=== PATIENT | male | born 1985 | race American Indian/Alaskan Native ===

== ENCOUNTER 2021-07-31 10:39 | Emergency (ER) | payer OTHER ==
--- NOTE | 2021-07-31 11:48 | Emergency Department Report ---
ED Lower Extremity HPI - General Chief Complaint: Extremity Injury, Lower Stated Complaint: RGHT ANKLE INJURY Time Seen by Provider: 07/31/21 11:18 Source: patient Mode of arrival: Ambulatory Limitations: No Limitations - History of Present Illness Initial Comments: Patient is a 36-year-old male presents emergency room complaints of a right ankle injury that occurred last night. 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 He states he did not fall completely to the ground. He states since then he has been experiencing right ankle pain and swelling. He states when he was a kid he did have a fracture of this ankle. He denies any numbness or weakness. He is ambulatory but does have discomfort with ambulation. Allergy to penicillin. PMHx HTN and asthma - Related Data Previous Rx's Medication Instructions Recorded Last Taken Type Benzonatate [Tessalon Perle] 100 mg PO TID PRN #30 capsule 07/02/18 Unknown Rx Naproxen 500 mg PO BID PRN #14 tab 07/31/21 Unknown Rx amLODIPine 5 mg PO DAILY #30 tab 07/31/21 Unknown Rx Allergies Allergy/AdvReac Type Severity Reaction Status Date / Time Penicillins Allergy Rash Verified 07/02/18 13:54 ED Review of Systems ROS: Stated complaint: RGHT ANKLE INJURY Other details as noted in HPI Comment: All other systems reviewed and negative ED Past Medical Hx - Past Medical History Previous Medical History?: Yes Hx Hypertension: Yes (no meds, noncompliance) Hx Asthma: Yes - Surgical History Past Surgical History?: Yes Additional Surgical History: endocardititis - Social History Smoking Status: Current Every Day Smoker Substance Use Type: Alcohol - Medications Home Medications: Home Medications Medication Instructions Recorded Confirmed Last Taken Type Benzonatate [Tessalon Perle] 100 mg PO TID PRN #30 capsule 07/02/18 Unknown Rx Naproxen 500 mg PO BID PRN #14 tab 07/31/21 Unknown Rx amLODIPine 5 mg PO DAILY #30 tab 07/31/21 Unknown Rx ED Physical Exam - General Limitations: No Limitations General appearance: alert, in no apparent distress - Head Head exam: Present: atraumatic, normocephalic - Eye Eye exam: Present: normal appearance - ENT ENT exam: Present: mucous membranes moist - Extremities Exam Extremities exam: Present: other (right medial ankle ttp and mild edema, FROM of the RLE, no obvious deformity, neurovascularly intact) - Neurological Exam Neurological exam: Present: alert, oriented X3 - Psychiatric Psychiatric exam: Present: normal affect, normal mood - Skin Skin exam: Present: warm, dry, intact ED Course Vital Signs 07/31/21 07/31/21 11:16 12:14 Temperature 98.6 F 98.4 F Pulse Rate 93 H 88 Respiratory 20 14 Rate Blood Pressure 157/119 Blood Pressure 165/106 [Right] O2 Sat by Pulse 100 99 Oximetry ED Lower Extremity MDM - Lab Data Vital Signs 07/31/21 07/31/21 11:16 12:14 Temperature 98.6 F 98.4 F Pulse Rate 93 H 88 Respiratory 20 14 Rate Blood Pressure 157/119 Blood Pressure 165/106 [Right] O2 Sat by Pulse 100 99 Oximetry - Radiology Data Radiology results: report reviewed Ordering Physician: CHICHO CANTOR Date of Service: 07/31/21 Procedure(s): XR ankle 3+V RT Accession Number(s): [id number] cc: CHICHO CANTOR Fluoro Time In Minutes: RIGHT ANKLE 3 VIEWS RIGHT FOOT 3 VIEWS INDICATION: right medial foot and ankle pain. COMPARISON: No relevant prior imaging study available. FINDINGS: Right ankle: No fracture or dislocation is seen. No significant degenerative changes. No significant soft tissue swelling. Right foot: No fracture or dislocation. No significant soft tissue swelling. IMPRESSION: 1. No acute findings. Signer Name: Martin Gramajo MD Signed: 07/31/2021 11:52 AM Workstation Name: [id number] Transcribed By: Dictated By: Martin Gramajo MD Electronically Authenticated By: Martin Gramajo MD Signed Date/Time: 07/31/21 1152 DD/ 1151 TD/TT: - Medical Decision Making Patient is a 36-year-old male presents emergency room complaints of a right ankle injury that occurred last night. 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 He states he did not fall completely to the ground. He states since then he has been experiencing right ankle pain and swelling. He states when he was a kid he did have a fracture of this ankle. He denies any numbness or weakness. He is ambulatory but does have discomfort with ambulation. Allergy to penicillin. PMHx HTN and asthma. vitals with elevated blood pressure, otherwise stable. Patient states that he has chronic hypertension, he is not on medication management, will start patient on low-dose amlodipine, advised low-sodium diet, incorporating daily exercise, and keeping a blood pressure log and taking this at the primary care physician. On exam right medial ankle ttp and mild edema, FROM of the RLE, no obvious deformity, neurovascularly intact. X-ray right ankle and foot 1. No acute findings. Symptoms and examination appear likely consistent with ankle sprain. Patient placed in ankle stirrup splint and given crutches by tech and remained neurovascularly intact. Discussed all findings with patient. Advised patient Please take medication as prescribed. May use ice 15 minutes at a time, rest, elevation of the leg. Follow-up with a orthopedic doctor. Return to emergency room for any new or worsening symptoms. Critical care attestation.: If time is entered above; I have spent that time in minutes in the direct care of this critically ill patient, excluding procedure time. ED Disposition Clinical Impression: Uncontrolled hypertension Right ankle sprain Qualifiers: Encounter type: initial encounter Involved ligament of ankle: unspecified ligament Qualified Code(s): S93.401A - Sprain of unspecified ligament of right ankle, initial encounter Disposition: HOME / SELF CARE / HOMELESS Is pt being admited?: No Does the pt Need Aspirin: No Condition: Stable Instructions: Ankle Sprain, Elastic Bandage and RICE Therapy, Hypertension (ED) Additional Instructions: Please take medication as prescribed. May use ice 15 minutes at a time, rest, elevation of the leg. Follow-up with a orthopedic doctor. Return to emergency room for any new or worsening symptoms. Prescriptions: amLODIPine 5 mg PO DAILY #30 tab Naproxen 500 mg PO BID PRN #14 tab PRN Reason: pain Referrals: PRIMARY CAREMD [Primary Care Provider] - 3-5 Days HERNESTO CINTRON MD [Staff Physician] - 3-5 Days Forms: Work/School Release Form(ED) Time of Disposition: 11:57 Print Language: MOHAWK
--- NOTE | 2021-07-31 11:56 | XRay Report ---
RIGHT ANKLE 3 VIEWS RIGHT FOOT 3 VIEWS INDICATION: right medial foot and ankle pain. COMPARISON: No relevant prior imaging study available. FINDINGS: Right ankle: No fracture or dislocation is seen. No significant degenerative changes. No significant soft tissue swelling. Right foot: No fracture or dislocation. No significant soft tissue swelling. IMPRESSION: 1. No acute findings. Signer Name: Martin Gramajo MD Signed: 07/31/2021 11:52 AM Workstation Name: [id number]
[2021-07-31 12:16] VITALS: BP 157/119
== END 2021-07-31 12:19 | disposition home or self-care (01) ==
LOC: ED 10:39
DX: S93.401A Sprain of unspecified ligament of right ankle, initial encounter (principal); I10 Essential (primary) hypertension; J45.909 Unspecified asthma, uncomplicated; Z79.899 Other long term (current) drug therapy; Z98.890 Other specified postprocedural states; Z88.0 Allergy status to penicillin; F17.200 Nicotine dependence, unspecified, uncomplicated; X58.XXXA Exposure to other specified factors, initial encounter; Y93.89 Activity, other specified; Y92.89 Other specified places as the place of occurrence of the external cause; Y99.8 Other external cause status
CPT/HCPCS: 99283

== ENCOUNTER 2021-12-17 10:30 | Emergency (ER) | payer OTHER ==
[2021-12-17 10:43] VITALS: BP 147/97
[2021-12-17 14:34] LABS: Bilirubin,Urine NEG (Negative); Blood,Urine MOD (Negative); Color,Urine Yellow (Yellow)
[2021-12-17 14:41] LABS: Amorphous Crystals,Urine 2+; Mucus,Urine 1+ /HPF
== END 2021-12-19 07:24 | disposition left against medical advice (07) ==
LOC: ED 10:30
DX: R31.9 Hematuria, unspecified (principal); Z53.21 Procedure and treatment not carried out due to patient leaving prior to being seen by health care provider
CPT/HCPCS: 81001

== ENCOUNTER 2021-12-20 08:53 | Emergency (ER) | payer OTHER ==
[2021-12-20 09:56] LABS: Mucus,Urine FEW /HPF; RBC,Urine < 1.0 /HPF (0.0-6.0); WBC,Urine < 1.0 /HPF (0.0-6.0)
[2021-12-20 10:33] LABS: Bilirubin,Urine Negative (Negative); Blood,Urine Negative (Negative); Color,Urine Yellow (Yellow); Protein,Urine <15 mg/dL mg/dL (Negative); Urobilinogen,Urine < 2.0 mg/dL (<2.0)
--- NOTE | 2021-12-20 10:42 | Emergency Department Report ---
ED Dysuria HPI - HPI Chief Complaint: Urogenital-Male Stated Complaint: BLOOD IN URINE Time Seen by Provider: 12/20/21 09:34 Duration: 2 Days Location of Discomfort: Other Severity: None Symptoms: Dysuria: No, Frequency: No, Suprapubic Pain: No, Flank Pain: No, Fever: No, Hematuria: Yes, Abdominal Pain: No, Previous UTI's: Yes Other History: Patient is a 36-year-old male that comes to the emergency room reporting blood in his urine. He denies any pain. No nausea vomiting. No fever or chills. No back pain or abdominal pain. Patient states that the last time that he had this he had a UTI. He denies penile discharge. Denies testicular pain. ED Review of Systems ROS: Stated complaint: BLOOD IN URINE Other details as noted in HPI Comment: All other systems reviewed and negative ED Past Medical Hx - Past Medical History Previous Medical History?: Yes Hx Hypertension: Yes Hx Asthma: Yes Hx Dementia: Yes - Surgical History Past Surgical History?: Yes Additional Surgical History: endocardititis - Social History Smoking Status: Never Smoker Substance Use Type: None - Medications Home Medications: Home Medications Medication Instructions Recorded Confirmed Last Taken Type Benzonatate [Tessalon Perle] 100 mg PO TID PRN #30 capsule 07/02/18 Unknown Rx Naproxen 500 mg PO BID PRN #14 tab 07/31/21 Unknown Rx amLODIPine 5 mg PO DAILY #30 tab 07/31/21 Unknown Rx Dysuria Exam - Exam General: Vital signs noted. No distress. Alert and acting appropriately. Exam: Yes Moist Mucous Membranes, No CVA Tenderness, No Abdominal Tenderness, No Rigidity or Guarding Labs: Lab Results 12/20/21 Range/Units Unknown Urine Color Yellow (Yellow) Urine Turbidity Clear (Clear) Urine pH 5.0 (5.0-7.0) Ur Specific [place] 1.030 (1.003-1.030) Urine Protein <15 mg/dl (Negative) mg/dL Urine Glucose (UA) Negative (Negative) mg/dL Urine Ketones Negative (Negative) mg/dL Urine Blood Negative (Negative) Urine Nitrite Negative (Negative) Ur Reducing Substances Not Reportable Urine Bilirubin Negative (Negative) Urine Ictotest Not Reportable Urine Urobilinogen < 2.0 (<2.0) mg/dL Ur Leukocyte Esterase Negative (Negative) Urine WBC (Auto) < 1.0 (0.0-6.0) /HPF Urine RBC (Auto) < 1.0 (0.0-6.0) /HPF U Epithel Cells (Auto) < 1.0 (0-13.0) /HPF Urine Mucus Few /HPF ED Course Vital Signs 12/20/21 09:16 Temperature 98.9 F Pulse Rate 89 Respiratory 16 Rate Blood Pressure 95/80 O2 Sat by Pulse 100 Oximetry ED Medical Decision Making - Medical Decision Making Labs 12/20/21 Unknown Urine Color Yellow Urine Turbidity Clear Urine pH 5.0 Ur Specific [place] 1.030 Urine Protein <15 mg/dl Urine Glucose (UA) Negative Urine Ketones Negative Urine Blood Negative Urine Nitrite Negative Ur Reducing Substances Not Reportable Urine Bilirubin Negative Urine Ictotest Not Reportable Urine Urobilinogen < 2.0 Ur Leukocyte Esterase Negative Urine WBC (Auto) < 1.0 Urine RBC (Auto) < 1.0 U Epithel Cells (Auto) < 1.0 Urine Mucus Few Vital Signs 12/20/21 09:16 Temperature 98.9 F Pulse Rate 89 Respiratory 16 Rate Blood Pressure 95/80 O2 Sat by Pulse 100 Oximetry UA noted. There is no leukocytes, nitrates or blood. I have reassured patient. He has been follow-up with his PCP. I encouraged him to stay well-hydrated. Given he has no symptoms have not done lab or CT scans. Patient discharged home with discharge plan of care including diet, activity medications and follow-up. He verbalizes understanding. Patient is ambulatory nontoxic [id number] and taking p.o. - Differential Diagnosis ro uti Critical care attestation.: If time is entered above; I have spent that time in minutes in the direct care of this critically ill patient, excluding procedure time. ED Disposition Clinical Impression: Urine blood Qualifiers: Hematuria type: unspecified type Qualified Code(s): R31.9 - Hematuria, unspecified Disposition: 01 HOME / SELF CARE / HOMELESS Is pt being admited?: No Does the pt Need Aspirin: No Condition: Stable Instructions: Dysuria Additional Instructions: Stay well-hydrated with water follow-up with PCP if this persist. No leukocytes or nitrates or blood on urinalysis today Referrals: ALEKSANDER HUYNH MD [Staff Physician] - 3-5 Days Forms: Work/School Release Form(ED) Time of Disposition: 10:41
[2021-12-20 11:54] VITALS: BP 147/87
== END 2021-12-20 11:53 | disposition home or self-care (01) ==
LOC: ED 08:53
DX: R31.9 Hematuria, unspecified (principal); I10 Essential (primary) hypertension; J45.909 Unspecified asthma, uncomplicated
CPT/HCPCS: 81001; 99283